=== PATIENT | male | born 1995 | race Caucasian/White ===

== ENCOUNTER → 2024-03-24 06:38 | Day surgery (SDC) | payer OTHER, SELFPAY | LOC: GI 06:38 | PROVIDERS: ATTENDING PHYSICIAN Student in an Organized Health Care Education/Training Program | DX: K63.3 Ulcer of intestine (principal); R19.7 Diarrhea, unspecified; D12.8 Benign neoplasm of rectum; K22.89 Other specified disease of esophagus; R14.0 Abdominal distension (gaseous); Z83.79 Family history of other diseases of the digestive system | CPT/HCPCS: 45380; 43239; 88305; 88342 ==

== ENCOUNTER → 2024-05-20 12:12 | Outpatient (REF) | payer OTHER, SELFPAY | LOC: MRI 3T 12:12 | PROVIDERS: ATTENDING PHYSICIAN Student in an Organized Health Care Education/Training Program; FAMILY PHYSICIAN Physician Assistant Medical | DX: K50.00 Crohn's disease of small intestine without complications (principal); K63.3 Ulcer of intestine | CPT/HCPCS: 72197; 74183; A9575 ==

== ENCOUNTER → 2025-02-25 16:35 | Outpatient (REF) | payer OTHER, SELFPAY | LOC: RAD 16:35 | PROVIDERS: ATTENDING PHYSICIAN Surgery; FAMILY PHYSICIAN Physician Assistant Medical | DX: N45.3 Epididymo-orchitis (principal) | CPT/HCPCS: 76870; 93976 ==